=== PATIENT | female | born 1990 | race Caucasian/White ===

== ENCOUNTER 2016-09-11 21:42 | Emergency (ER) | payer SELFPAY ==
[2016-09-11 21:50] VITALS: BP 125/95
--- NOTE | 2016-09-11 22:30 | RAD ---
INDICATION: Chest pain. COMPARISON: There are no prior studies available for comparison. TECHNIQUE: Dual-energy PA and lateral views of the chest were obtained. FINDINGS: The heart is within normal limits in size. Mediastinal and hilar contours appear within normal limits. The lungs are underinflated. There is minimal atelectasis at the left lung base. The lungs are otherwise clear. No pleural effusion or pneumothorax is seen. IMPRESSION: NO EVIDENCE FOR ACUTE FINDING.
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
== END 2016-09-11 23:04 | disposition home or self-care (01) ==
LOC: ED 21:42
DX: R07.9 Chest pain, unspecified (principal); V47.6XXA Car passenger injured in collision with fixed or stationary object in traffic accident, initial encounter; Y92.410 Unspecified street and highway as the place of occurrence of the external cause; J45.909 Unspecified asthma, uncomplicated; F17.210 Nicotine dependence, cigarettes, uncomplicated
CPT/HCPCS: 71020; 99282

== ENCOUNTER 2017-02-27 19:19 | Emergency (ER) | payer OTHER ==
[2017-02-27 19:28] VITALS: BP 110/70
[2017-02-27] MEDS ORDERED: Nitrofurantoin Macrocrystals* 50 MG CAP PO ONE (19:58)
--- NOTE | 2017-02-27 20:38 | UC ---
Complaint Female HPI - HPI Summary HPI Summary: PATIENT 23 WEEKS HAVING TWO DAYS OF URINARY FREQUENCY PRESSURE, FREQUENCY. NO FEVER. NO BACK PAIN. - History Of Current Complaint Chief Complaint: UCGU Stated Complaint: UTI COMPLAINT Time Seen by Provider: 02/27/17 19:32 Hx Obtained From: Patient, Family/[employer]er Hx Last Menstrual Period: Onset/Duration: Gradual Onset, Lasting Days, Still Present Timing: Lasting Days Severity Initially: Mild Severity Currently: Moderate Character: Dull, Burning Aggravating Factor(s): Urination Associated Signs And Symptoms: Negative: Fever, Back Pain, Vaginal Bleeding/ Discharge, Vaginal Discharge, Vomiting(# Of Episodes =) - Risk Factors Ectopic Risk Factor: Negative Ovarian Torsion Risk Factor: Negative - Allergies/Home Medications Allergies/Adverse Reactions: Allergies Allergy/AdvReac Type Severity Reaction Status Date / Time No Known Allergies Allergy Verified 02/27/17 19:28 PMH/Surg Hx/FS Hx/Imm Hx Previously Healthy: Yes - Surgical History Surgical History: None - Family History Known Family History: Negative: Cardiac Disease, Hypertension, Diabetes - Social History Occupation: Employed Full-time Lives: With Family Alcohol Use: None Substance Use Type: None Smoking Status (MU): Former Smoker Amount Used/How Often: 1/2PPD Review of Systems Constitutional: Negative Skin: Negative Eyes: Negative ENT: Negative Respiratory: Negative Cardiovascular: Negative Gastrointestinal: Negative Genitourinary: Dysuria, Frequency, Urgency Motor: Negative Neurovascular: Negative Musculoskeletal: Negative Neurological: Negative Psychological: Negative All Other Systems Reviewed And Are Negative: Yes Physical Exam Triage Information Reviewed: Yes Appearance: Well-Appearing, No Pain Distress, Well-Nourished Vital Signs: Initial Vital Signs Temp 98.0 F 02/27/17 19:25 Pulse 93 02/27/17 19:25 Resp 12 02/27/17 19:25 BP 110/70 02/27/17 19:25 Pulse Ox 100 02/27/17 19:25 Vital Signs Reviewed: Yes Eye Exam: Normal ENT Exam: Normal ENT: Positive: Normal ENT inspection, Hearing grossly normal, TMs normal Dental Exam: Normal Neck exam: Normal Neck: Positive: Supple, Nontender, No Lymphadenopathy Respiratory Exam: Normal Respiratory: Positive: Chest non-tender, Lungs clear, Normal breath sounds, No respiratory distress, No accessory muscle use Cardiovascular Exam: Normal Cardiovascular: Positive: RRR, No Murmur, Pulses Normal, Brisk Capillary Refill Abdominal Exam: Normal Abdomen Description: Positive: Nontender, No Organomegaly. Negative: CVA Tenderness (R), CVA Tenderness (L) Musculoskeletal Exam: Normal Neurological Exam: Normal Psychological Exam: Normal Skin Exam: Normal Complaint Female Dx - Differential Dx/Diagnosis Differential Diagnosis/HQI/PQRI: Urinary Tract Infection Provider Diagnoses: URINARY TRACT INFECTION Discharge - Discharge Plan Condition: Stable Disposition: HOME Prescriptions: Nitrofurantoin Monohyd Macro [Macrobid] 100 mg PO BID #14 cap Patient Education Materials: Urinary Tract Infection in (ED) Forms: *Work Release Referrals: [facility] [place] [facility] [Outside] No Primary Care Phys,NOPCP [Primary Care Provider] -
== END 2017-02-27 20:16 | disposition home or self-care (01) ==
LOC: UCEAST 19:19
DX: O23.42 Unspecified infection of urinary tract in pregnancy, second trimester (principal); Z3A.22 22 weeks gestation of pregnancy; Z87.891 Personal history of nicotine dependence
CPT/HCPCS: 81003; 87077; 87086; 87186; 99212; A9270-GY; G0463

== ENCOUNTER 2017-03-16 18:42 | Emergency (ER) | payer OTHER ==
[2017-03-16 19:02] VITALS: BP 137/67
--- NOTE | 2017-03-16 19:08 | UC ---
Throat Pain/Nasal Yuri HPI - HPI Summary HPI Summary: 26 y/o female presents to the urgent care c/o of a cough w/ a sore throat for the past 3 days. Pt states difficulty swallowing, her cough is dry. Pt states she is 3 months . Pt denies fever, SOB, chest pain, N/V/D, urinary symptoms, abdominal pain, GREEN. Pt has not other complains - History of Current Complaint Chief Complaint: UCRespiratory Stated Complaint: COUGH SORE THROAT Time Seen by Provider: 03/16/17 19:01 Hx Obtained From: Patient Hx Last Menstrual Period: ?: Yes Onset/Duration: Gradual Onset, Lasting Days, Still Present Severity: Mild Pain Intensity: 3 Pain Scale Used: 0-10 Numeric Cough: Nonproductive Associated Signs & Symptoms: Positive: Dysphagia. Negative: Sinus Discomfort, Nasal Discharge - Epiglottits Risk Factors Epiglottis Risk Factors: Negative - Allergies/Home Medications Allergies/Adverse Reactions: Allergies Allergy/AdvReac Type Severity Reaction Status Date / Time No Known Allergies Allergy Verified 02/27/17 19:28 PMH/Surg Hx/FS Hx/Imm Hx Previously Healthy: Yes Respiratory History: Asthma - Surgical History Surgical History: None - Family History Known Family History: Positive: None Negative: Cardiac Disease, Hypertension, Diabetes - Social History Occupation: Employed Full-time Lives: With Family Alcohol Use: None Substance Use Type: None Smoking Status (MU): Former Smoker Amount Used/How Often: 1/2PPD Review of Systems Constitutional: Negative Skin: Negative Eyes: Negative ENT: Sore Throat Respiratory: Negative Cardiovascular: Negative Gastrointestinal: Negative Genitourinary: Negative Motor: Negative Neurovascular: Negative Musculoskeletal: Negative Neurological: Negative Psychological: Negative All Other Systems Reviewed And Are Negative: Yes Physical Exam Triage Information Reviewed: Yes Appearance: Well-Appearing, No Pain Distress, Well-Nourished Vital Signs: Initial Vital Signs Temp 99.0 F 03/16/17 18:54 Pulse 88 03/16/17 18:54 Resp 18 03/16/17 18:54 BP 137/67 03/16/17 18:54 Pulse Ox 100 03/16/17 18:54 Vital Signs Reviewed: Yes Eye Exam: Normal Eyes: Positive: Conjunctiva Clear - PERRLA, EOMI, fundi grossly normal ENT Exam: Normal ENT: Positive: Normal ENT inspection, Hearing grossly normal, Pharyngeal erythema - no exudate, TMs normal, Tonsillar swelling. Negative: Tonsillar exudate Dental Exam: Normal Neck exam: Normal Neck: Positive: Supple, Nontender, No Lymphadenopathy Respiratory Exam: Normal Respiratory: Positive: Chest non-tender, Lungs clear, Normal breath sounds Cardiovascular Exam: Normal Cardiovascular: Positive: RRR, No Murmur, Pulses Normal Abdominal Exam: Normal Abdomen Description: Positive: Nontender, No Organomegaly, Soft. Negative: CVA Tenderness (R), CVA Tenderness (L) Bowel Sounds: Positive: Present Musculoskeletal Exam: Normal Musculoskeletal: Positive: Strength Intact, ROM Intact, No Edema Neurological Exam: Normal Psychological Exam: Normal Skin Exam: Normal Throat Pain/Nasal Course/Dx - Course Course Of Treatment: 26 y/o female presents to the urgent care c/o of a cough w/ a sore throat for the past 3 days. Pt states difficulty swallowing, her cough is dry. Pt states she is 3 months . Pt denies fever, SOB, chest pain, N/V/D, urinary symptoms, abdominal pain, GREEN. Hx obtained. Rapid strep ordered. Result: negative. Pt Rx tylenol PO q4-6hrs to alleviate symptoms , advised to increase fluid intake, rest and eat well. If symptoms do not improve to f/u with her PCP or return to the urgent care. Pt understood and agreed. - Differential Dx/Diagnosis Differential Diagnosis/HQI/PQRI: Influenza, Laryngitis, Mononucleosis, Pharyngitis, URI Provider Diagnoses: 1- Viral pharyngitis Discharge - Discharge Plan Condition: Stable Disposition: HOME Prescriptions: Acetaminophen TAB* [Tylenol TAB*] 650 mg PO Q4H PRN #30 tab PRN Reason: Pain Patient Education Materials: Pharyngitis (ED) Referrals: [facility] [place] [facility] [Outside] No Primary Care Phys,NOPCP [Primary Care Provider] - Additional Instructions: Please take Tylenol q4-6hrs to alleviate symptoms of pain or swelling. Increase fluid intake, rest. If symptoms do not improve please f/u with your PCP for further evaluation and treatment
== END 2017-03-16 19:40 | disposition home or self-care (01) ==
LOC: UCEAST 18:42
DX: J45.909 Unspecified asthma, uncomplicated (principal); J02.8 Acute pharyngitis due to other specified organisms; Z87.891 Personal history of nicotine dependence
CPT/HCPCS: 87651; 99202; G0463

== ENCOUNTER 2017-10-06 07:53 | Inpatient (IN) | payer OTHER ==
[2017-10-06] MEDS ORDERED: Dinoprostone* 10 MG VAG.SUPP VAGINAL ONE (08:53)
--- NOTE | 2017-10-06 15:22 | HP ---
General Information - General Information Maternal Age: 26 Grav: 1 Para: 0 SAB: 0 IEA: 0 Estimated Due Date: 10/01/17 Determined By: Early Ultrasound Gestational Age in Weeks and Days: 40 Weeks and 5 Days Maternal Blood Type and Rh: O Positive - Results this Serology/RPR Result: Non-Reactive Rubella Result: Non-Immune HBsAg Result: Negative HIV Result: Negative GBS Culture Result: Negative Past Medical History Delivery History: See Records Pertinent Past Medical History: See Records - Asthma, no partner/FOB support Pertinent Past Surgical History: None Pertinent Family History: Non-Contributory - Antepartal Records Antepartal Records: Reviewed, Complicated by: - Exposure to chlamydia @ 39 or 40 weeks; treated Review of Systems Constitutional: Comfortable CV Complaint: No Respiratory: Shortness of Breath: No Gastrointestinal: No Nausea/Vomiting, Normal Bowel Movement Genitourinary: No Dysuria, No Bleeding, No Leaking Fluid Musculoskeletal: No Complaint Neurological: No Headache Movement: Normal Exam Allergies/Adverse Reactions: Allergies No Known Allergies Allergy (Verified 02/27/17 19:28) BP 126/80 HR 107 RR 20 T 98.6 02 100 - Measurements Height: 5 ft 3 in Weight: 221 lb Weight in lbs: 221 Body Mass Index (BMI): 39.1 Pre- Weight: 220 lb Weight Gained This : 1 lbs and 0 ozs - Exam Abdomen: No Upper Quadrant Pain Breast: Breast Exam Deferred CVA: No CVA Tenderness Extremities: No Edema Heart: Normal Rhythm/Heart Sounds HEENT: No Significant Findings Lungs: Clear Bilaterally Rectal: Rectal Exam Deferred Reflexes: DTR 2+, - - no clonus Thyroid: - - WNL @ entry to care - Cervical Exam 1cm/50%/-2 - Abdominal Exam Abdomen Exam: Non-Tender Abdomen Exam Comment: EFW 7lb - Membranes Membrane Status: Intact - Ultrasound/Biophysical Profile Ultrasound Status: Not Done EFM Findings - External Monitor Findings Baseline Heart Rate: 145 External Monitor Findings: Accelerations Present, No Pattern of Variable or Late Decelerations, Variability Moderate Contractions: None, Irregular, Mild, < 45 Seconds Assessment/Plan - Plan Plan: Induction, Cervical Ripening - Date/Time of Admission Date of Admission: 10/06/17 Time of Admission: 09:09
[2017-10-06] MEDS ORDERED: Misoprostol TAB* 100 MCG PRN (22:06)
[2017-10-06] MEDS ORDERED: Misoprostol TAB* 100 MCG ONE (22:30)
[2017-10-07] MEDS ORDERED: Promethazine INJ(RESTRICTED)* 25 MG/ML 1 ML VIAL IV PRN (04:47)
[2017-10-07] MEDS ORDERED: Nalbuphine* 20 MG/ML 1 ML VIAL IV PRN (04:47)
[2017-10-07] MEDS ORDERED: Nalbuphine* 20 MG/ML 1 ML VIAL ONE (05:03)
[2017-10-07] MEDS ORDERED: Promethazine INJ(RESTRICTED)* 25 MG/ML 1 ML VIAL ONE (05:03)
[2017-10-07 05:34] LABS: ABS Basophils 0 10^3/ul (0-0.2); ABS Eosinophils 0 10^3/ul (0-0.6); ABS Lymphocytes 1.7 10^3/ul (1.0-4.8); ABS Monocytes 0.6 10^3/ul (0-0.8); ABS Neutrophils 11.4 10^3/ul (1.5-7.7); ABS Nucleated RBC 0 10^3/ul; Eosinophil % 0.1 % (0-6); Hematocrit 41 % (35-47); Hemoglobin 14.2 g/dl (12.0-16.0); Lymphocyte % 12.2 % (25-47); Mean Corpuscular HGB Conc 34 g/dl (31-36); Mean Corpuscular Hemoglobin 33 pg (27-31); Mean Corpuscular Volume 96 fL (80-97); Mean Platelet Volume 9 um3 (7.4-10.4); Nucleated Red Blood Cells % 0; Platelet Count 294 10^3/ul (150-450); Red Blood Count 4.34 10^6/ul (4.0-5.4); Red Cell Distribution Width 14 % (10.5-15); White Blood Count 13.8 10^3/ul (3.5-10.8)
[2017-10-07] MEDS ORDERED: Oxytocin in LR* 20 UNITS/1,000 ML BAG IVPB ONE (08:52)
[2017-10-07] MEDS ORDERED: Dibucaine 1% 28.35 GM TUBE PR PRN (08:54)
[2017-10-07] MEDS ORDERED: Witch Hazel PAD* JAR TOPICAL PRN (08:54)
[2017-10-07] MEDS ORDERED: Glycerin ADULT SUPP PR PRN (08:54)
[2017-10-07] MEDS ORDERED: Ibuprofen TAB* 600 MG PO PRN (08:54)
[2017-10-07] MEDS ORDERED: Acetaminophen TAB* 325 MG PO PRN (08:54)
[2017-10-07] MEDS ORDERED: Oxytocin in LR* 20 UNITS/1,000 ML BAG IVPB SCH (09:00)
[2017-10-07] MEDS ORDERED: Simethicone TAB* 80 MG TAB.CHEW PO SCH (12:30)
--- NOTE | 2017-10-07 17:00 | PTEDU ---
Patient Name: ANASTASIA STEPHENSON ANASTASIA STEPHENSON selected video: Never Ever Shake a Baby to view on 10/07/2017 at 4:59:47 PM [id number]
[2017-10-07] MEDS: Docusate CAP* 100 MG PO SCH ×2 (22:08)
[2017-10-08 06:53] LABS: ABS Basophils 0.1 10^3/ul (0-0.2); ABS Eosinophils 0.1 10^3/ul (0-0.6); ABS Lymphocytes 3.9 10^3/ul (1.0-4.8); ABS Monocytes 0.9 10^3/ul (0-0.8); ABS Neutrophils 10.6 10^3/ul (1.5-7.7); ABS Nucleated RBC 0 10^3/ul; Eosinophil % 0.8 % (0-6); Hematocrit 41 % (35-47); Hemoglobin 13.7 g/dl (12.0-16.0); Lymphocyte % 25.2 % (25-47); Mean Corpuscular HGB Conc 34 g/dl (31-36); Mean Corpuscular Hemoglobin 33 pg (27-31); Mean Corpuscular Volume 96 fL (80-97); Mean Platelet Volume 8 um3 (7.4-10.4); Nucleated Red Blood Cells % 0.1; Platelet Count 281 10^3/ul (150-450); Red Blood Count 4.22 10^6/ul (4.0-5.4); Red Cell Distribution Width 14 % (10.5-15); White Blood Count 15.6 10^3/ul (3.5-10.8)
[2017-10-08] MEDS ORDERED: Measles, Mumps,Rubella VACC* 0.5 ML/VIAL SUBCUT ONE (09:00)
[2017-10-08] MEDS ORDERED: Ferrous Gluconate TAB* 324 MG TAB PO SCH (09:00)
[2017-10-08] MEDS: Docusate CAP* 100 MG PO SCH ×3 (09:19→21:41)
[2017-10-09 07:41] VITALS: BP 112/52
[2017-10-09] MEDS: Docusate CAP* 100 MG PO SCH (09:36)
== END 2017-10-09 09:43 | disposition home or self-care (01) | DRG 560 ==
LOC: MCHOBOUT 07:53 → MCHOB 09:09
PROVIDERS: ADMIT Midwife; ATTEND Midwife
PROC: 10E0XZZ Delivery of Products of Conception, External Approach (ICD-10-PCS; principal; 2017-10-07)
PROC: 3E033VJ Introduction of Other Hormone into Peripheral Vein, Percutaneous Approach (ICD-10-PCS; 2017-10-07)
DX: O48.0 Post-term pregnancy (principal); F17.210 Nicotine dependence, cigarettes, uncomplicated; O99.334 Smoking (tobacco) complicating childbirth; O62.3 Precipitate labor; Z37.0 Single live birth; Z3A.40 40 weeks gestation of pregnancy
CPT/HCPCS: 36415; 85025; 86850; 86900; 86901; A9270-GY; J2300; J2550; S0191

== ENCOUNTER 2018-05-16 18:15 | Emergency (ER) | payer SELFPAY ==
[2018-05-16] MEDS ORDERED: predniSONE TAB* 20 MG PO ONE (19:03)
[2018-05-16] MEDS ORDERED: Azithromycin TAB* 250 MG PO ONE (19:07)
[2018-05-16] MEDS ORDERED: Benzonatate CAP* 100 MG PO ONE (19:08)
--- NOTE | 2018-05-16 19:09 | ED ---
Respiratory - HPI Summary HPI Summary: 27 year female presents with cough for the past week. She states that she has been coughing so hard that she has been vomiting. She does have a history of asthma. She does smoke. She has been using her inhaler. She states that cough has been keeping her overnight. She denies any chest pain. She denies a sore throat. She denies any fevers. She admits to sinus congestion that has been getting worse over the past week. She admits to a headache. She is only been using an inhaler to treat her symptoms. Her son is also sick with similar symptoms. - History of Current Complaint Chief Complaint: EDFluSymptoms Stated Complaint: COUGH Time Seen by Provider: 05/16/18 18:52 Pain Intensity: 0 - Allergy/Home Medications Allergies/Adverse Reactions: Allergies Allergy/AdvReac Type Severity Reaction Status Date / Time No Known Allergies Allergy Verified 02/27/17 19:28 PMH/Surg Hx/FS Hx/Imm Hx Endocrine/Hematology History: Denies: Hx Diabetes, Hx Thyroid Disease Cardiovascular History: Denies: Hx Hypertension Respiratory History: Reports: Hx Asthma Denies: Hx Chronic Obstructive Pulmonary Disease (COPD) GI History: Denies: Hx Ulcer Infectious Disease History: No Infectious Disease History: Denies: Hx Clostridium Difficile, Hx Hepatitis, Hx Human Immunodeficiency Virus (HIV), Hx of Known/Suspected MRSA, Hx Shingles, Hx Tuberculosis, Hx Known/ Suspected VRE, Hx Known/Suspected VRSA, History Other Infectious Disease, Traveled Outside the [place] in Last 30 Days - Family History Known Family History: Positive: None Negative: Cardiac Disease, Hypertension, Diabetes - Social History Alcohol Use: None Substance Use Type: Reports: None Smoking Status (MU): Current Every Day Smoker Type: Cigarettes Amount Used/How Often: 1/2PPD Have You Smoked in the Last Year: Yes Review of Systems Negative: Fever Positive: Nasal Discharge Negative: Chest Pain Positive: Shortness Of Breath, Cough Positive: Vomiting. Negative: Abdominal Pain All Other Systems Reviewed And Are Negative: Yes Physical Exam Triage Information Reviewed: Yes Vital Signs On Initial Exam: Initial Vitals Temp Pulse Resp BP Pulse Ox 97.6 F 118 20 128/63 97 05/16/18 18:26 05/16/18 18:26 05/16/18 18:26 05/16/18 18:26 05/16/18 18:26 Vital Signs Reviewed: Yes Appearance: Positive: Well-Appearing Skin: Positive: Warm, Dry Head/Face: Positive: Normal Head/Face Inspection Eyes: Positive: Normal, EOMI, MIKAEL, Conjunctiva Clear ENT: Positive: Normal ENT inspection, Pharynx normal, Nasal congestion, TMs normal, Sinus tenderness Respiratory/Lung Sounds: Positive: Clear to Auscultation, Breath Sounds Present Cardiovascular: Positive: Normal, RRR Abdomen Description: Positive: Nontender, Soft Bowel Sounds: Positive: Present Musculoskeletal: Positive: Normal Neurological: Positive: Normal Psychiatric: Positive: Normal Diagnostics - Vital Signs Vital Signs Temp Pulse Resp BP Pulse Ox 05/16/18 18:26 97.6 F 118 20 128/63 97 - Laboratory Lab Statement: Any lab studies that have been ordered have been reviewed, and results considered in the medical decision making process. Disposition - Course Course Of Treatment: 27 year female presents with cough for the past week. She states that she has been coughing so hard that she has been vomiting. She does have a history of asthma. She does smoke. She has been using her inhaler. She states that cough has been keeping her overnight. She denies any chest pain. She denies a sore throat. She denies any fevers. She admits to sinus congestion that has been getting worse over the past week. She admits to a headache. She is only been using an inhaler to treat her symptoms. Her son is also sick with similar symptoms. On exam nasal discharge present. Sinus tenderness. Lungs clear to auscultation. Patient's son is being seen by the aerial applicator pilot currently and spoke with aerial applicator pilot says she wants to treat child for potential pertussis. will tested for pertussis and treat with Z-Bria. this will also cover for sinusitis. Gave prednisone and Tessalon to help with the cough. Patient understands agrees with plan. - Differential Dx - Cardiopulmonary Differential Diagnoses - Cardiopulmonary: Asthma, Bronchitis, Lower Resp Infection - Diagnoses Provider Diagnoses: Sinusitis, Bronchitis Discharge - Sign-Out/Discharge Documenting (check all that apply): Patient Departure - Discharge Plan Condition: Good Disposition: HOME Prescriptions: Azithromycin TAB* [Zithromax TAB (Z-BRIA) 250 mg #6 tabs] 250 mg PO DAILY #4 tab Benzonatate CAP* [Tessalon 100 MG CAP*] 100 mg PO TID PRN #21 cap PRN Reason: Cough predniSONE TAB* [Deltasone TAB*] 50 mg PO DAILY #4 tab Patient Education Materials: Acute Bronchitis (ED) Referrals: No Primary Care Phys,NOPCP [Primary Care Provider] - Additional Instructions: Use inhaler up to two puffs every 4 hours for cough and wheezing Take steroid once a day for 4 more days starting tomorrow Take antibiotic once daily starting tomorrow for 4 days take tessalon three times a day for cough Take Tylenol or ibuprofen for pain every 6 hours Return to ED if develop severe shortness of breath, worsening chest pain, or any new or worsening symptoms - Billing Disposition and Condition Condition: GOOD Disposition: Home
[2018-05-16 19:34] VITALS: BP 139/88
[2018-05-18 17:41] LABS: Bordetella pertussis PCR Negative
== END 2018-05-16 19:33 | disposition home or self-care (01) ==
LOC: ED 18:15
DX: J32.9 Chronic sinusitis, unspecified (principal); J40 Bronchitis, not specified as acute or chronic
CPT/HCPCS: 87798; 99282; A9270-GY; J7512

== ENCOUNTER 2018-06-27 15:21 | Emergency (ER) | payer OTHER ==
[2018-06-27 15:33] VITALS: BP 112/68
--- NOTE | 2018-06-27 15:55 | UC ---
Skin Complaint HPI - HPI Summary HPI Summary: 27 yo female with swollen/red/itchy/scaley eyelids x 1 mon has been using neosporin lately no fever no visual changes - History of Current Complaint Chief Complaint: UCEye Time Seen by Provider: 06/27/18 15:36 Stated Complaint: EYE IRRITATION Hx Obtained From: Patient Hx Last Menstrual Period: 06/20/18 Onset/Duration: Gradual Onset, Lasting Weeks Timing: Constant Onset Severity: Mild Current Severity: Mild Pain Intensity: 2 Pain Scale Used: 0-10 Numeric Location: Other - eyelids Character: Swelling, Pruritus, Raised Aggravating Factor(s): Nothing Alleviating Factor(s): Nothing - Allergy/Home Medications Allergies/Adverse Reactions: Allergies Allergy/AdvReac Type Severity Reaction Status Date / Time No Known Allergies Allergy Verified 06/27/18 15:33 Home Medications: Home Medications Ranitidine HCl (Nf) [Zantac] 75 mg PO DAILY PRN 06/27/18 [History Confirmed ] Review of Systems All Other Systems Reviewed And Are Negative: Yes Constitutional: Positive: Negative Skin: Positive: Rash Eyes: Positive: Negative ENT: Positive: Negative Respiratory: Positive: Negative Cardiovascular: Positive: Negative Gastrointestinal: Positive: Negative Genitourinary: Positive: Negative Motor: Positive: Negative Neurovascular: Positive: Negative Musculoskeletal: Positive: Negative Neurological: Positive: Negative Psychological: Positive: Negative PMH/Surg Hx/FS Hx/Imm Hx Previously Healthy: Yes GI/ History: Gastroesophageal Reflux - Surgical History Surgical History: None - Family History Known Family History: Negative: Cardiac Disease, Hypertension, Diabetes - Social History Alcohol Use: Occasionally Substance Use Type: None Smoking Status (MU): Current Every Day Smoker Type: Cigarettes Amount Used/How Often: 1/2PPD Have You Smoked in the Last Year: Yes Household Exposure Type: Cigarettes - Immunization History Most Recent Influenza Vaccination: refused Most Recent Pneumonia Vaccination: none Physical Exam Triage Information Reviewed: Yes Appearance: Well-Appearing, No Pain Distress, Well-Nourished Vital Signs: Initial Vital Signs Temp 98.7 F 06/27/18 15:29 Pulse 85 06/27/18 15:29 Resp 16 06/27/18 15:29 BP 112/68 06/27/18 15:29 Pulse Ox 99 06/27/18 15:29 Vital Signs Reviewed: Yes Eyes: Positive: Conjunctiva Clear, Conjunctiva Inflamed, Other: - bilateral lid edema/red/scaley ENT: Positive: Hearing grossly normal. Negative: Nasal congestion, Nasal drainage, Tonsillar swelling, Tonsillar exudate, Sinus tenderness, Uvula midline Neck: Positive: Supple Respiratory: Positive: No respiratory distress, No accessory muscle use Cardiovascular: Positive: RRR Musculoskeletal: Positive: ROM Intact, No Edema Neurological: Positive: Alert Psychological Exam: Normal Skin Exam: Other - bilat lid mckenna derm Course/Dx - Diagnoses Provider Diagnoses: eyelid seborrheic dermatitis Discharge - Sign-Out/Discharge Documenting (check all that apply): Patient Departure All imaging exams completed and their final reports reviewed: No Studies - Discharge Plan Condition: Stable Disposition: HOME Patient Education Materials: Seborrheic Dermatitis (DC) Referrals: Ammy Navarro [Medical Doctor] - 2 Weeks (recheck in 2-4 weeks if not better) Additional Instructions: NO NEOSPORIN get some selsin blue shampoo dilute it one part shampoo with nine parts water gently apply to affected areas and wash off in a few minutes try not to get it in your eyes do this about 4 times a day gently dry then apply a thin film of aquaphor healing ointment No makeup or other facial products - Billing Disposition and Condition Condition: STABLE Disposition: Home
== END 2018-06-27 16:00 | disposition home or self-care (01) ==
LOC: UCEAST 15:21
DX: L21.8 Other seborrheic dermatitis (principal); F17.210 Nicotine dependence, cigarettes, uncomplicated
CPT/HCPCS: 99211; G0463

== ENCOUNTER 2018-09-22 13:18 | Emergency (ER) | payer MEDICAID, OTHER ==
[2018-09-22 14:37] VITALS: BP 116/70
--- NOTE | 2018-09-22 14:54 | UC ---
Respiratory Complaint HPI - HPI Summary HPI Summary: 27 y/o female presents to the urgent care c/o productive hacking cough for the past 3 days. pt reports symptoms started win nasal congestion and yellowish, nasal discharge and +PND. Then body aches, and chill. Pt denies fever and GREEN. She has PMHX of asthma and last night she developed mild wheezing and SOB. She has been using albuterol inhaler w/o any improvement. Pt has also taken Dayquill Po to alleviate symptoms. Pt denies fever, GREEN, dizziness, chest pain, palpitations, abdominal pain, N/v/d. - History of Current Complaint Chief Complaint: UCGeneralIllness Stated Complaint: COUGH CONGESTION Time Seen by Provider: 09/22/18 14:53 Hx Obtained From: Patient Hx Last Menstrual Period: 09/19/18 Onset/Duration: Gradual Onset, Lasting Days - 3 days, Still Present, Worse Since - today with wheezing Timing: Intermittent Episodes Severity Initially: Mild Severity Currently: Moderate Pain Intensity: 1 Pain Scale Used: 0-10 Numeric Character: Cough: Productive, Sputum Description: - yellowish Aggravating Factors: Recumbent Position Alleviating Factors: OTC Meds Associated Signs And Symptoms: Positive: Chills, Wheezing, URI, Nasal Congestion - Risk Factors Pulmonary Embolism Risk Factors: Negative Cardiac Risk Factors: Negative Pseudomonas Risk Factors: Negative Tuberculosis Risk Factors: Negative - Allergies/Home Medications Allergies/Adverse Reactions: Allergies Allergy/AdvReac Type Severity Reaction Status Date / Time No Known Allergies Allergy Verified 09/22/18 14:31 Home Medications: Home Medications Dextromethorphan HBr [Vicks Dayquil Cough] 15 mg PO ONCE 09/22/18 [History Confirmed 09/22/18] PMH/Surg Hx/FS Hx/Imm Hx Previously Healthy: Yes Respiratory History: Asthma - Surgical History Surgical History: None - Family History Known Family History: Positive: None - Pt deneis FMHX Negative: Cardiac Disease, Hypertension, Diabetes - Social History Occupation: Employed Full-time Lives: With Family Alcohol Use: None Substance Use Type: None Smoking Status (MU): Light Every Day Tobacco Smoker Type: Cigarettes Amount Used/How Often: 1/2PPD Have You Smoked in the Last Year: Yes Household Exposure Type: Cigarettes - Immunization History Most Recent Influenza Vaccination: refused Most Recent Pneumonia Vaccination: none Review of Systems All Other Systems Reviewed And Are Negative: Yes Constitutional: Positive: Chills, Other - bodyc aches Skin: Positive: Negative Eyes: Positive: Negative ENT: Positive: Nasal Discharge - yellowish, Sinus Congestion Respiratory: Positive: Cough - productive w/ yellowish phlegm Cardiovascular: Positive: Negative Gastrointestinal: Positive: Negative Genitourinary: Positive: Negative Motor: Positive: Negative Neurovascular: Positive: Negative Musculoskeletal: Positive: Myalgia Neurological: Positive: Negative Psychological: Positive: Negative Is Patient Immunocompromised?: No Physical Exam - Summary Physical Exam Summary: Vital Signs Reviewed: Yes General: well developed, well nourished female sitting in the examining table w/ o any apparent distress Eyes: Positive: Conjunctiva Clear - PERRLA, EOMI, fundi grossly normal ENT: Positive: Normal ENT inspection, Hearing grossly normal, Pharynx normal, Nasal congestion - edematous and erythematous nasal mucosa, Nasal drainage - yellowish drainage, TMs normal. Negative: Tonsillar swelling, Tonsillar exudate Neck: Positive: Supple, Nontender, No Lymphadenopathy Respiratory: no orthopnea or dyspnea. Able to speak in full sentences, no retractions or accessory muscle use, no tripod position, stridor, or head bobbing. Positive breath sounds bilaterally. diffuse scattered wheezing and rhonchi on b/L lungs, no crackles or rales. Cardiovascular: Positive: RRR, No Murmur, Pulses Normal, Brisk Capillary Refill Abdomen Description: Positive: Nontender, No Organomegaly, Soft. Negative: CVA Tenderness (R), CVA Tenderness (L) Bowel Sounds: Positive: Present Musculoskeletal Exam: Normal Musculoskeletal: Positive: Strength Intact, ROM Intact, No Edema Neurological Exam: Normal Psychological Exam: Normal Skin Exam: Normal Triage Information Reviewed: Yes Vital Signs: Initial Vital Signs Temp 98.6 F 09/22/18 14:32 Pulse 96 09/22/18 14:32 Resp 18 09/22/18 14:32 BP 116/70 09/22/18 14:32 Pulse Ox 99 09/22/18 14:32 UC Diagnostic Evaluation - Laboratory O2 Sat by Pulse Oximetry: 99 Respiratory Course/Dx - Course Course Of Treatment: 27 y/o female presents to the urgent care c/o productive hacking cough for the past 3 days. pt reports symptoms started win nasal congestion and yellowish, nasal discharge and +PND. Then body aches, and chill. Pt denies fever and GREEN. She has PMHX of asthma and last night she developed mild wheezing and SOB. She has been using albuterol inhaler w/o any improvement. Pt has also taken Dayquill Po to alleviate symptoms. Pt denies fever, GREEN, dizziness, chest pain, palpitations, abdominal pain, N/V/D. Hx obtained. Pt w/ diffuse scattered wheezing and rhonchi on b/L lungs on examination. O2Sat:99%. Pt is hemodynamically stable. Rapid influenza A&B ordered: Pt given Prednisone PO and Duoneb Treatment to alleviate symptoms. Pt tolerated well treatment and lungs improved,and wheezing resolved. Patient prescribed Z-kei PO, Prednisone taper dose, Albuterol neb as directed below. The patient was recommended to increase fluid intake. Take medications as recommended. Pt advised to returned to the clinic or f/u w/ her PCP if symptoms do not improve. All D/C instructions explained. Patient understood and agree w / plan of care. Pt left clinic hemodynamically stable , A&OX3 - Differential Dx/Diagnosis Differential Diagnosis/HQI/PQRI: Asthma, Bronchitis, Influenza, Lower Resp Infection, Sinusitis, Other - pneumonia Provider Diagnosis: Asthma exacerbation, Acute bronchitis Discharge - Sign-Out/Discharge Documenting (check all that apply): Patient Departure - d/c home All imaging exams completed and their final reports reviewed: Yes - Discharge Plan Condition: Stable Disposition: HOME Prescriptions: Albuterol 2.5MG/3ML (0.083%)* [Ventolin 2.5 MG/3 ML NEB.DAHLIA*] 2.5 mg INH Q6H PRN #1 neb.[email or web address] PRN Reason: Wheezing Azithromyxin KEI (NF) [Z-Kei (Zithromax) 250 mg tabs #6] 2 tab PO .TODAY, THEN 1 DAILY #6 tab predniSONE TAB* [Deltasone 20 MG TAB*] 20 mg PO DAILY #11 tab Patient Education Materials: Asthma (ED), Acute Bronchitis (ED) Referrals: [facility] [Outside] - 2 Days Additional Instructions: 1- Take Prednisone PO taper dose as directed starting tomorrow. First loading dose given today. Take Z-kei PO as directed full course of antibiotic 2-Use the Albuterol nebulizer treatment to alleviate SOB, and wheezing as directed . Increase fluid intake, rest and eat well. 3- If symptoms do not improve or worsen or your develop SOB with fever and severe wheezing please go immediately to the ER further evaluation and treatment. 4- F/u with your PCP in 2-3 days for further management on your Asthma - Billing Disposition and Condition Condition: STABLE Disposition: Home
[2018-09-22] MEDS ORDERED: Albuterol/Ipratropium NEB.SOL* Albuterol 2.5 MG/Ipratropium 0.5 MG 3 ML INH ONE (15:03)
[2018-09-22] MEDS ORDERED: predniSONE TAB* 20 MG PO ONE (15:03)
[2018-09-22 15:19] LABS: Influenza A Molecular NEGATIVE (Negative); Influenza B Molecular NEGATIVE (Negative)
== END 2018-09-22 16:00 | disposition home or self-care (01) ==
LOC: UCEAST 13:18
DX: J45.901 Unspecified asthma with (acute) exacerbation (principal); F17.210 Nicotine dependence, cigarettes, uncomplicated
CPT/HCPCS: 71046; 99212; A9270-GY; G0463; J7512

== ENCOUNTER 2019-07-14 17:36 | Emergency (ER) | payer OTHER ==
[2019-07-14 18:13] VITALS: BP 141/83
--- NOTE | 2019-07-14 18:33 | UC ---
Respiratory Complaint HPI - HPI Summary HPI Summary: Ms. Duran has had a productive cough and sore throat for about a week. It is gotten much worse in the last couple days both cough and sore throat. She denies nasal congestion. - History of Current Complaint Chief Complaint: UCRespiratory Stated Complaint: COUGH Time Seen by Provider: 07/14/19 18:17 Hx Obtained From: Patient Hx Last Menstrual Period: [id number] Onset/Duration: Gradual Onset Timing: Constant Severity Initially: Moderate Severity Currently: Severe Pain Intensity: 9 Character: Cough: Productive - Allergies/Home Medications Allergies/Adverse Reactions: Allergies Allergy/AdvReac Type Severity Reaction Status Date / Time No Known Allergies Allergy Verified 07/14/19 18:13 Home Medications: Home Medications Eucalyptus/Menthol [Cough Drops] 1 each PO Q1H PRN 07/14/19 [History Confirmed 07/14/19] PMH/Surg Hx/FS Hx/Imm Hx Previously Healthy: Yes - Surgical History Surgical History: None - Family History Known Family History: Positive: None - Pt deneis FMHX Negative: Cardiac Disease, Hypertension, Diabetes - Social History Alcohol Use: None Substance Use Type: None Smoking Status (MU): Light Every Day Tobacco Smoker Type: Cigarettes Amount Used/How Often: 1/2PPD Have You Smoked in the Last Year: Yes Household Exposure Type: Cigarettes - Immunization History Most Recent Influenza Vaccination: refused Most Recent Pneumonia Vaccination: none Review of Systems All Other Systems Reviewed And Are Negative: Yes Constitutional: Positive: Fatigue Skin: Positive: Negative ENT: Positive: Sore Throat Respiratory: Positive: Cough Physical Exam - Summary Physical Exam Summary: She is nontoxic in appearance with stable vital signs. Triage Information Reviewed: Yes Appearance: Well-Appearing, Obese Vital Signs: Initial Vital Signs Temp 98.7 F 07/14/19 18:08 Pulse 102 07/14/19 18:08 Resp 18 07/14/19 18:08 BP 141/83 07/14/19 18:08 Pulse Ox 99 07/14/19 18:08 Vital Signs Reviewed: Yes ENT: Positive: Pharyngeal erythema, TMs normal - 2 Neck: Positive: Supple, Nontender, No Lymphadenopathy Respiratory: Positive: Lungs clear, Normal breath sounds, No respiratory distress, No accessory muscle use Cardiovascular Exam: Normal Neurological Exam: Normal Skin Exam: Normal Respiratory Course/Dx - Course Course Of Treatment: This is likely a viral URI and I am going treat her symptomatically with guaifenesin and codeine. - Differential Dx/Diagnosis Provider Diagnosis: URI (upper respiratory infection) Discharge ED - Sign-Out/Discharge Documenting (check all that apply): Patient Departure All imaging exams completed and their final reports reviewed: No Studies - Discharge Plan Condition: Stable Disposition: HOME Patient Education Materials: Upper Respiratory Infection (ED) Referrals: No Primary Care Phys,NOPCP [Primary Care Provider] - [facility] [Outside] Additional Instructions: Please follow up if not gradually improving. - Billing Disposition and Condition Condition: STABLE Disposition: Home
== END 2019-07-14 19:10 | disposition home or self-care (01) ==
LOC: UCEAST 17:36
DX: J06.9 Acute upper respiratory infection, unspecified (principal); F17.210 Nicotine dependence, cigarettes, uncomplicated
CPT/HCPCS: 87651; 99212; G0463

== ENCOUNTER 2021-05-12 04:00 | Inpatient (IN) ==
[2021-05-12] MEDS ORDERED: Buffered Lidocaine 1% SYRIN 1 ml INTRADERM ONE (04:29)
[2021-05-12] MEDS ORDERED: Lactated Ringers 1000 ml BAG 1,000 ML IV ONE (04:29)
[2021-05-12] MEDS ORDERED: Lactated Ringers 1000 ml BAG 1,000 ML IV SCH (05:00)
[2021-05-12 05:41] LABS: Rapid COVID-19 Molecular Undetected (Undetected)
[2021-05-12 06:31] LABS: Urine Benzodiazepine Screen None Detected (None Detect); Urine Cannabinoids Screen None Detected (None Detect); Urine Opiates Screen None Detected (None Detect)
[2021-05-12] MEDS ORDERED: Calcium Carb (TUMS) 500 mg CHEW TAB PO PRN (11:24)
[2021-05-12] MEDS: Nicotine PATCH 7 MG/24 HR PATCH TRANSDERM SCH (11:49)
[2021-05-12] MEDS ORDERED: Nalbuphine 10 MG/ML 1 ML VIAL IV PRN (12:24)
[2021-05-12] MEDS ORDERED: Promethazine INJ(RESTRICTED) 25 MG/ML 1 ml VIAL IV PRN (12:24)
[2021-05-12 12:49] LABS: ABS Lymphocytes 1.3 10^3/ul (1.0-4.8); ABS Monocytes 0.5 10^3/ul (0-0.8); ABS Neutrophils 6.9 10^3/ul (1.5-7.7); Eosinophil % 0.3 %; Hematocrit 39 % (35-47); Hemoglobin 13.5 g/dL (12.0-16.0); Mean Corpuscular HGB Conc 35 g/dL (31-36); Mean Corpuscular Hemoglobin 34 pg (27-31); Mean Corpuscular Volume 98 fL (80-97); Mean Platelet Volume 8.9 fL (7.4-10.4); Platelet Count 219 10^3/uL (150-450); Red Blood Count 3.95 10^6 /uL (3.70-4.87); Red Cell Distribution Width 13 % (10-15); White Blood Count 8.7 10^3/uL (3.5-10.8)
[2021-05-12] MEDS ORDERED: OBEPIDURAL 0 ML EPIDURAL ONE (19:59)
[2021-05-12] MEDS ORDERED: Oxytocin in LR 20 UNITS/1,000 ML BAG IVPB ONE (20:10)
[2021-05-12] MEDS ORDERED: Dibucaine 1% OINT 28.35 GM TUBE PR PRN (20:21)
[2021-05-12] MEDS ORDERED: Glycerin ADULT 2.4 gm SUPP PR PRN (20:21)
[2021-05-12] MEDS ORDERED: Nicotine Lozenge mini 4 MG LOZNG.MINI MT PRN (20:23)
[2021-05-12] MEDS ORDERED: witch hazeL 43% TOP.SOLN 200 ML PHA COMPOUND TOPICAL PRN (20:36)
[2021-05-12] MEDS ORDERED: Oxytocin in LR 20 UNITS/1,000 ML BAG IVPB SCH (21:00)
[2021-05-13 06:39] LABS: ABS Basophils 0.1 10^3/ul (0-0.2); ABS Lymphocytes 2.1 10^3/ul (1.0-4.8); ABS Monocytes 0.8 10^3/ul (0-0.8); ABS Neutrophils 12.4 10^3/ul (1.5-7.7); Eosinophil % 0.1 %; Hematocrit 40 % (35-47); Hemoglobin 13.9 g/dL (12.0-16.0); Lymphocyte % 13.6 %; Mean Corpuscular HGB Conc 35 g/dL (31-36); Mean Corpuscular Hemoglobin 35 pg (27-31); Mean Corpuscular Volume 99 fL (80-97); Mean Platelet Volume 8.7 fL (7.4-10.4); Platelet Count 213 10^3/uL (150-450); Red Cell Distribution Width 13 % (10-15); White Blood Count 15.5 10^3/uL (3.5-10.8)
[2021-05-13] MEDS ORDERED: Measles, Mumps,Rubella VACC 0.5 ML/VIAL SUBCUT ONE (09:00)
[2021-05-13] MEDS ORDERED: Witch Hazel PAD JAR TOPICAL PRN (13:25)
[2021-05-13] MEDS: Nicotine PATCH 7 MG/24 HR PATCH TRANSDERM SCH (15:49)
[2021-05-13 19:47] VITALS: BP 129/70
== END 2021-05-13 20:30 | disposition home or self-care (01) | DRG 560 ==
LOC: MCHOBOUT 04:00 → MCHOB 04:25
PROVIDERS: ADMIT Midwife; ATTEND Midwife